=== PATIENT | male | born 1950 | race Caucasian/White ===

== ENCOUNTER 2018-01-31 09:55 | Emergency (ER) | payer MEDICARE, BC ==
[~2018-01-31] VITALS: Ht 177.8 cm; Wt 90.0 kg
[2018-01-31 10:04] VITALS: BP 165/73
[2018-01-31] MEDS ORDERED: IBUP-1985 PO (10:58)
== END 2018-01-31 11:12 | disposition home or self-care (01) ==
LOC: ER 09:56
DX: S60.052A Contusion of left little finger without damage to nail, initial encounter (principal); Z79.899 Other long term (current) drug therapy; W11.XXXA Fall on and from ladder, initial encounter; Y93.89 Activity, other specified; Y92.89 Other specified places as the place of occurrence of the external cause; Y99.8 Other external cause status
CPT/HCPCS: 29130; 73140; 99284